=== PATIENT | female | born 1990 | race Caucasian/White ===

== ENCOUNTER 2017-12-31 23:30 | Emergency (ER) | payer OTHER ==
[2017-12-31 23:52] LABS: #Basophils 0.1 thou/uL (0.0-0.2); #Eosinphils 0.1 thou/uL (0.0-0.7); #Lymphocytes 3.4 thou/uL (1.20-3.40); #Monocytes 0.6 thou/uL (0.11-0.59); #Neutrophils 3.5 thou/uL (1.40-6.50); %Eosinophils 1.7 % (0.0-10.0); %Lymphocytes 44.5 % (21.0-51.0); %Monocytes 7.7 % (0.0-10.0); Mean Corpuscular HGB CONC 34.5 g/dL (32.0-36.0); Mean Corpuscular Hemoglobin 30.2 pg (27.0-31.0); Mean Corpuscular Volume 87.5 fL (78.0-98.0); Mean Platelet Volume 8.8 fL (7.4-10.4); Platelet Count 194 thou/uL (130-400); RBC Distribution Width 11.5 % (11.5-14.5); Red Blood Cell (RBC) Count 4.31 mill/uL (4.20-5.40); White Blood Cell (WBC) Count 7.7 thou/uL (4.8-10.8)
[2017-12-31 23:58] LABS: BHCG - Serum Negative (NEGATIVE); Pregs Control Background? CLEAR/WHITE (CLR/WHITE); Pregs Control Bar Appear? YES (CONTROL BAR)
[2018-01-01 00:06] LABS: ALT (SGPT) 20 U/L (8-55); AST (SGOT) 20 U/L (5-34); Albumin 4.6 g/dL (3.5-5.0); Alkaline Phosphatase 62 U/L (40-150); Anion Gap 13 mmol/L (10-20); BUN (Urea Nitrogen) 14 mg/dL (7.0-18.7); Bilirubin, Total 0.3 mg/dL (0.2-1.2); Calc. Creatinine Clearance 0 mL/min (70-130); Calcium 9.7 mg/dL (7.8-10.44); Carbon Dioxide 21 mmol/L (22-29); Chloride 108 mmol/L (98-107); Estimated GFR-MDRD 82; Globulin 2.8 g/dL (2.4-3.5); Glucose 85 mg/dL (70-105); Potassium 3.7 mmol/L (3.5-5.1); Protein, Total 7.4 g/dL (6.0-8.3); Sodium 138 mmol/L (136-145)
[2018-01-01 01:06] LABS: Bilirubin Negative (Negative); Blood, Urine Negative (Negative); Clarity CLEAR (Clear); Glucose, Urine (Dipstick) Negative (Negative); Leukocyte Negative (Negative); Nitrite Negative (Negative); Protein, Urine (Dipstick) Negative (Neg-Trace); Specific Gravity, Urine 1.021 (1.002-1.036); Urobilinogen 0.2 mg/dL (0.2-1.0)
[2018-01-01] MEDS ORDERED: Ketorolac Tromethamine 30 MG/ML VIAL ONE (01:07)
--- NOTE | 2018-01-01 08:59 | ULT ---
PRELIMINARY REPORT/[facility]/EMERGENTY AFTER-HOURS PROCEDURE US Pelvis Complete, Transabdominal US Pelvis, Transvaginal US Duplex Arterial/Venous of the Pelvis, Complete EXAM DATE/TIME: Exam ordered 01/01/2018 1:08 AM CLINICAL HISTORY: 27 years old, female; Pain; Pelvic pain; Patient HX: Midline pelvic pain x 1 day. HX: Rt ovarian cyst . R/O torsion TECHNIQUE: Real-time transabdominal and transvaginal pelvic ultrasound (complete) with image documentation. Transvaginal imaging was used for better evaluation of the endometrium and adnexa. Real-time duplex u ltrasound scan of the arterial and venous flow of the pelvis with color Doppler flow and spectral wav eform analysis. COMPARISON: No relevant prior studies available. FINDINGS: Uterus/cervix: Uterus measures 8.9 x 4.1 x 6.3 cm. Normal endometrial stripe thickness. No myometrial mass. Right ovary: RIGHT ovary measures 4.0 x 2.4 x 2.7 cm. There is a 1.5 cm complex probably hemorrhagic cyst in the RIGHT ovary. Normal arterial and venous waveforms. No torsion. Left ovary: LEFT ovary measures 3.4 x 1.9 x 2.1 cm. normal arterial and venous waveforms. No torsion. Free fluid: No free fluid. Tubes, lines and devices: An intrauterine device is present. IMPRESSION: RIGHT ovarian hemorrhagic cyst. No evidence of torsion. Thank you for allowing us to participate in the care of your patient. Dictated and Authenticated by: Ellis Barba MD 01/01/2018 2:25 AM Central Time ([place] & [place]) FINAL REPORT EMERGENCY AFTER HOURS PELVIC ULTRASOUND: Date: 01/01/18 FINDINGS/IMPRESSION: I agree with the preliminary report provided by Junior. There is a mildly complex ovarian cyst within t he right ovary. IUD is seen within the endometrial canal. Mild free fluid is present within the cul-d e-sac. POS: [facility]
== END 2018-01-01 03:13 | disposition home or self-care (01) ==
LOC: ERS 23:30
DX: N83.201 Unspecified ovarian cyst, right side (principal); F41.9 Anxiety disorder, unspecified; F32.9 Major depressive disorder, single episode, unspecified
CPT/HCPCS: 36415; 76856; 80053; 81003; 84703; 85025; 87086; 87480; 87491; 87510; 87591; 87660; 96374; J1885; J2270